=== PATIENT | female | born 2005 | race Two or more races ===

== ENCOUNTER 2025-01-15 20:31 | Emergency (ER) | payer OTHER ==
[~2025-01-15] VITALS: Ht 154.9 cm; Wt 49.9 kg
[2025-01-15 21:15] VITALS: BP 120/70; O2SAT 100
[2025-01-15] MEDS ORDERED: TRUVADA 100 MG1 EACH PO (22:14)
== END 2025-01-15 22:40 | disposition home or self-care (01) ==
LOC: ER 20:32
DX: Z20.6 Contact with and (suspected) exposure to human immunodeficiency virus [HIV] (principal)